=== PATIENT | female | born 1970 | race Caucasian/White ===

== ENCOUNTER 2024-09-18 08:11 | Emergency (ER) | payer OTHER ==
[~2024-09-18] VITALS: Ht 152.4 cm; Wt 79.5 kg
[2024-09-18 08:14] VITALS: BP 106/68; PULSE 89; RESP 18; TEMP 98.8; O2SAT 97
[2024-09-18] MEDS ORDERED: CLIN-26 PO (08:34)
[2024-09-18] MEDS ORDERED: HYDR-4062 PO (08:34)
== END 2024-09-18 08:50 | disposition home or self-care (01) ==
LOC: EMS 08:12
DX: K04.7 Periapical abscess without sinus (principal); J45.909 Unspecified asthma, uncomplicated; F12.90 Cannabis use, unspecified, uncomplicated; F17.210 Nicotine dependence, cigarettes, uncomplicated; Z88.0 Allergy status to penicillin
CPT/HCPCS: 99283; Z7502